=== PATIENT | male | born 1955 | race American Indian/Alaskan Native ===

== ENCOUNTER 2023-11-18 03:36 | Inpatient (IN) | payer OTHER ==
[2023-11-18] MEDS ORDERED: ACETAMINOPHEN 1000 MG/100 ML BAG IVPB ONE (04:05)
[2023-11-18] MEDS ORDERED: FAMOTIDINE 20 MG/50 ML IVPB 20 MG/50 ML MG IVPB ONE ×2 (04:05→05:45)
[2023-11-18] MEDS ORDERED: LACTATED RINGERS SOLUTION 1000 ML INFUS.BAG IV ONE (04:06)
[2023-11-18] MEDS ORDERED: ONDANSETRON 4 MG/2 ML VIAL IVPB ONE (04:08)
[2023-11-18] MEDS ORDERED: AZITHROMYCIN IVPB 500 MG in DEXTROSE 5%-WATER - 250 ML IVPB ONE (04:56)
[2023-11-18] MEDS ORDERED: CEFTRIAXONE 1,000 MG in DEXTROSE 5%-WATER - 50 ML IVPB ONE (04:56)
[2023-11-18 05:34] LABS: POTASSIUM 4.3 mmol/L (3.5-5.1)
[2023-11-18 05:37] LABS: BLOOD UREA NITROGEN 22.2 mg/dL (7-18); CALCIUM 9.5 mg/dL (8.5-10.1)
[2023-11-18 05:38] LABS: BASO % 0.3 % (0-2.0); EOS % 0.1 % (0-4.5); HEMATOCRIT 45.9 % (35.4-49); HEMOGLOBIN 15.2 GM/dL (11.7-16.9); LYMPH % 12.8 % (8-40); MCHC 33.2 g/dl (32.0-35.9); MEAN CELL VOLUME 93.4 fl (80-96); MONO % 7.9 % (3.8-10.2); NEUT % 78.9 % (42.8-82.8); PLATELET COUNT 148 10^3/uL (134-434); RBC 4.91 M/mm3 (4.00-5.60); RDW 15.2 % (11.9-15.9); WHITE BLOOD COUNT 7.4 K/mm3 (4.0-10.0)
[2023-11-18] MEDS ORDERED: ACETAMINOPHEN INJECTION 100 ML IVPB ONE (05:38)
[2023-11-18 05:39] LABS: CREATININE 1.3 mg/dL (0.55-1.3); PHOSPHOROUS 3.4 mg/dL (2.5-4.9)
[2023-11-18 05:39] LABS: VENOUS O2 SATURATION 28.1 % (70-80); VENOUS PCO2 40.4 mmHg (38-52); VENOUS PH 7.404 (7.310-7.410)
[2023-11-18 05:41] LABS: BILIRUBIN,TOTAL 0.4 mg/dL (0.2-1); TOT PROT 8.7 g/dl (6.4-8.2)
[2023-11-18] MEDS ORDERED: ONDANSETRON 4 MG/2 ML VIAL ONE (05:45)
[2023-11-18] MEDS ORDERED: CEFTRIAXONE 1 GM/50 ML BAG ONE ×2 (05:52→09:58)
[2023-11-18] MEDS ORDERED: AZITHROMYCIN IVPB 500 MG/250 ML BAG IVPB ONE ×2 (07:01→10:08)
[2023-11-18] MEDS ORDERED: ACETAMINOPHEN 325 MG TABLET (FP) PO PRN (09:03)
[2023-11-18] MEDS ORDERED: AZITHROMYCIN 250 MG TABLET ONE (09:57)
[2023-11-18] MEDS ORDERED: SULFAMETHOXAZOLE/TRIMETHOPRIM 800MG/160MG D.S. TABLET ONE (09:57)
[2023-11-18] MEDS ORDERED: amLODIPine BESYLATE 10 MG TABLET (FP) ONE ×2 (09:57→10:24)
[2023-11-18] MEDS ORDERED: ENOXAPARIN NA (PORCINE) 40 MG/0.4 ML DISP.SYRIN SQ ONE (09:58)
[2023-11-18] MEDS ORDERED: MULTIVITAMINS (DAILY MVI) TABLET (FP) ONE (09:58)
[2023-11-18] MEDS: amLODIPine BESYLATE 10 MG TABLET (FP) PO SCH (10:41)
[2023-11-18] MEDS: ENOXAPARIN NA (PORCINE) 40 MG/0.4 ML DISP.SYRIN SQ SCH (10:41)
[2023-11-18] MEDS: MULTIVITAMINS (DAILY MVI) TABLET (FP) PO SCH (10:42)
[2023-11-18] MEDS: BICTEGRAV/EMTRICIT/TENOFOV (BIKTARVY) 50-200-25 MG TABLET PO SCH (12:19)
[2023-11-18 12:26] LABS: PH,URINE 6.5 (5.0-8.0); URINE APPEARANCE CLEAR; URINE BILIRUBIN NEGATIVE (NEGATIVE); URINE COLOR YELLOW; URINE GLUCOSE (UA) NEGATIVE (NEGATIVE); URINE KETONE NEGATIVE (NEGATIVE)
[2023-11-18 12:27] LABS: URINE LEUK ESTERASE NEGATIVE (NEGATIVE); URINE NITRITE NEGATIVE (NEGATIVE); URINE PROTEIN 1+ (NEGATIVE)
[2023-11-18 12:28] LABS: EPI CELLS 2 /uL (0-25.1); HYALINE CASTS 0 /uL (0-3.1); URINE BACTERIA 3 /uL (0-1359); URINE RBC 55 /uL (0-23.9); URINE WBC 4 /uL (0-25.8)
[2023-11-18] MEDS: ATORVASTATIN CA 10 MG TABLET (FP) PO SCH (21:49)
[2023-11-18] MEDS ORDERED: ONDANSETRON 4 MG/2 ML VIAL IVPUSH ONE (23:30)
[2023-11-19] MEDS: BICTEGRAV/EMTRICIT/TENOFOV (BIKTARVY) 50-200-25 MG TABLET PO SCH (08:32)
[2023-11-19] MEDS: methaDONE HCL 10 MG TABLET PO SCH ×2 (08:33→10:16)
[2023-11-19 08:40] LABS: BASO % 0.4 % (0-2.0); EOS % 0.1 % (0-4.5); HEMATOCRIT 40.5 % (35.4-49); HEMOGLOBIN 13.6 GM/dL (11.7-16.9); LYMPH % 9.1 % (8-40); MCH 31.1 pg (25.7-33.7); MCHC 33.7 g/dl (32.0-35.9); MEAN CELL VOLUME 92.4 fl (80-96); MEAN PLT VOLUME 8.2 fl (7.5-11.1); MONO % 5.9 % (3.8-10.2); NEUT % 84.5 % (42.8-82.8); PLATELET COUNT 146 10^3/uL (134-434); RBC 4.38 M/mm3 (4.00-5.60); RDW 14.9 % (11.9-15.9); WHITE BLOOD COUNT 8.1 K/mm3 (4.0-10.0)
[2023-11-19 08:55] LABS: CALCIUM 8.7 mg/dL (8.5-10.1)
[2023-11-19 08:56] LABS: ALBUMIN 3.5 g/dl (3.4-5.0); BLOOD UREA NITROGEN 22.9 mg/dL (7-18); MAGNESIUM 2.3 mg/dL (1.8-2.4)
[2023-11-19 08:59] LABS: CREATININE 1.3 mg/dL (0.55-1.3); PHOSPHOROUS 3.4 mg/dL (2.5-4.9)
[2023-11-19 09:00] LABS: BILIRUBIN,TOTAL 0.7 mg/dL (0.2-1)
[2023-11-19] MEDS: ENOXAPARIN NA (PORCINE) 40 MG/0.4 ML DISP.SYRIN SQ SCH (10:16)
[2023-11-19] MEDS: MULTIVITAMINS (DAILY MVI) TABLET (FP) PO SCH (10:16)
[2023-11-19] MEDS: amLODIPine BESYLATE 10 MG TABLET (FP) PO SCH (10:17)
[2023-11-19] MEDS: CEFTRIAXONE 1 GM in DEXTROSE 5%-WATER - 50 ML IVPB SCH (10:17)
[2023-11-19] MEDS: AZITHROMYCIN IVPB 250 MG in DEXTROSE 5%-WATER - 250 ML IVPB SCH (10:18)
[2023-11-19] MEDS: SULFAMETHOXAZOLE/TRIMETHOPRIM 800MG/160MG D.S. TABLET PO SCH (11:15)
[2023-11-19 14:49] VITALS: RESP 18
[2023-11-19] MEDS: ATORVASTATIN CA 10 MG TABLET (FP) PO SCH (21:35)
[2023-11-20] MEDS: BICTEGRAV/EMTRICIT/TENOFOV (BIKTARVY) 50-200-25 MG TABLET PO SCH (08:27)
[2023-11-20 10:20] LABS: BASO % 0.5 % (0-2.0); EOS % 1.3 % (0-4.5); HEMATOCRIT 40.2 % (35.4-49); HEMOGLOBIN 13.3 GM/dL (11.7-16.9); LYMPH % 16.4 % (8-40); MCH 30.8 pg (25.7-33.7); MEAN CELL VOLUME 93.3 fl (80-96); MEAN PLT VOLUME 8.4 fl (7.5-11.1); MONO % 7.7 % (3.8-10.2); NEUT % 74.1 % (42.8-82.8); PLATELET COUNT 160 10^3/uL (134-434); RDW 14.6 % (11.9-15.9); WHITE BLOOD COUNT 6.1 K/mm3 (4.0-10.0)
[2023-11-20 10:31] LABS: POTASSIUM 4.2 mmol/L (3.5-5.1)
[2023-11-20 10:35] LABS: ALBUMIN 3.3 g/dl (3.4-5.0); BLOOD UREA NITROGEN 28.5 mg/dL (7-18); MAGNESIUM 2.5 mg/dL (1.8-2.4)
[2023-11-20 10:40] LABS: BILIRUBIN,TOTAL 0.5 mg/dL (0.2-1); CREATININE 1.4 mg/dL (0.55-1.3)
[2023-11-20] MEDS: methaDONE HCL 10 MG TABLET PO SCH (11:00)
[2023-11-20] MEDS: MIRTAZAPINE 15 MG TABLET (FP) PO SCH (11:01)
[2023-11-20] MEDS: CEFTRIAXONE 1 GM in DEXTROSE 5%-WATER - 50 ML IVPB SCH (11:01)
[2023-11-20] MEDS: amLODIPine BESYLATE 10 MG TABLET (FP) PO SCH (11:01)
[2023-11-20] MEDS: MULTIVITAMINS (DAILY MVI) TABLET (FP) PO SCH (11:01)
[2023-11-20] MEDS: ENOXAPARIN NA (PORCINE) 40 MG/0.4 ML DISP.SYRIN SQ SCH (11:02)
[2023-11-20] MEDS: AZITHROMYCIN IVPB 250 MG in DEXTROSE 5%-WATER - 250 ML IVPB SCH (11:49)
[2023-11-20] MEDS: MINERAL OIL/PET HY-PHL TOPICAL OINTMENT 454 GM JAR TP SCH (15:07)
[2023-11-20 15:41] VITALS: BMI 13.4
[2023-11-20] MEDS: ATORVASTATIN CA 10 MG TABLET (FP) PO SCH (21:55)
[2023-11-21 07:24] VITALS: BP 124/89; PULSE 76; TEMP 99.5
[2023-11-21] MEDS: BICTEGRAV/EMTRICIT/TENOFOV (BIKTARVY) 50-200-25 MG TABLET PO SCH (08:30)
[2023-11-21] MEDS ORDERED: CEFUROXIME AXETIL 500 MG TABLET PO SCH (10:00)
[2023-11-21] MEDS: amLODIPine BESYLATE 10 MG TABLET (FP) PO SCH (10:17)
[2023-11-21] MEDS: MULTIVITAMINS (DAILY MVI) TABLET (FP) PO SCH (10:17)
[2023-11-21] MEDS: MINERAL OIL/PET HY-PHL TOPICAL OINTMENT 454 GM JAR TP SCH (10:17)
[2023-11-21] MEDS: SULFAMETHOXAZOLE/TRIMETHOPRIM 800MG/160MG D.S. TABLET PO SCH (10:17)
[2023-11-21] MEDS: methaDONE HCL 10 MG TABLET PO SCH (10:17)
[2023-11-21] MEDS: MIRTAZAPINE 15 MG TABLET (FP) PO SCH (10:18)
[2023-11-21] MEDS: ENOXAPARIN NA (PORCINE) 40 MG/0.4 ML DISP.SYRIN SQ SCH (10:18)
[2023-11-21 10:24] LABS: BASO % 0.4 % (0-2.0); EOS % 2.5 % (0-4.5); HEMATOCRIT 42.6 % (35.4-49); HEMOGLOBIN 14.1 GM/dL (11.7-16.9); LYMPH % 20.9 % (8-40); MCH 30.9 pg (25.7-33.7); MCHC 33.2 g/dl (32.0-35.9); MEAN CELL VOLUME 93.1 fl (80-96); MEAN PLT VOLUME 8.6 fl (7.5-11.1); MONO % 8.5 % (3.8-10.2); NEUT % 67.7 % (42.8-82.8); PLATELET COUNT 168 10^3/uL (134-434); RBC 4.58 M/mm3 (4.00-5.60); RDW 14.8 % (11.9-15.9); WHITE BLOOD COUNT 5.7 K/mm3 (4.0-10.0)
[2023-11-21 10:43] LABS: POTASSIUM 4.1 mmol/L (3.5-5.1)
[2023-11-21 10:51] LABS: CALCIUM 9.7 mg/dL (8.5-10.1); MAGNESIUM 2.1 mg/dL (1.8-2.4)
[2023-11-21 10:52] LABS: ALBUMIN 3.5 g/dl (3.4-5.0); BLOOD UREA NITROGEN 32.4 mg/dL (7-18)
[2023-11-21 10:54] LABS: CREATININE 1.3 mg/dL (0.55-1.3)
[2023-11-21 10:55] LABS: BILIRUBIN,TOTAL 0.4 mg/dL (0.2-1)
[2023-11-21 10:56] LABS: TOT PROT 8.1 g/dl (6.4-8.2)
== END 2023-11-21 15:42 | disposition home or self-care (01) | DRG 138 ==
LOC: JER 03:36 → JERBED 05:58 → J7W 18:09
PROVIDERS: ADMIT Internal Medicine; ATTEND Nurse Practitioner Acute Care
DX: J12.1 Respiratory syncytial virus pneumonia (principal); E43 Unspecified severe protein-calorie malnutrition; D64.9 Anemia, unspecified; I10 Essential (primary) hypertension; B20 Human immunodeficiency virus [HIV] disease; J44.9 Chronic obstructive pulmonary disease, unspecified; E78.5 Hyperlipidemia, unspecified; R64 Cachexia; R91.1 Solitary pulmonary nodule; K86.2 Cyst of pancreas; I71.21 Aneurysm of the ascending aorta, without rupture; Z68.1 Body mass index [BMI] 19.9 or less, adult; F17.200 Nicotine dependence, unspecified, uncomplicated; F11.10 Opioid abuse, uncomplicated
CPT/HCPCS: 0241U-QW; 36415; 71045-TC-FY; 71260-TC; 80053; 81003; 82803; 82962; 83605; 83690; 83735; 84100; 84484; 85025; 86359; 86360; 87070; 87081; 87086; 87205; 87536; 87899; 93005; 93010; 97116-GP; 97161-GP; 99285-25; Q9967